=== PATIENT | male | born 1995 | race Hispanic/Latino ===

== ENCOUNTER 2020-05-08 21:41 | Emergency (ER) | payer OTHER ==
[~2020-05-08] VITALS: Ht 177.8 cm; Wt 136.1 kg
[2020-05-08] MEDS ORDERED: ACETAMINOPHEN 325 MG TAB ONE (23:09)
[2020-05-08] MEDS ORDERED: ACETAMINOPHEN 325 MG TAB PO ONE (23:15)
--- NOTE | 2020-05-09 01:25 | Emergency Department Note ---
History of Present Illnes History of Present Illness Chief Complaint: COVID PUI History of Present Illness This is a 24 year old male * 24 Y/O MALE PT AAOX3 PRESENTS TO THE ER C/O GENERALIZED WEAKNESS, ESCALANTE, FEVER/CHILLS, DRY COUGH AND HEARTBURN X1 WEEK; PT DENIES BEING AROUND RECENTL Y ANYONE SICK; TEMP 102.1 IN TRIAGE; NAD NOTED AT THIS TIME; RESP EVEN/UNLABORED; NAD NOTED AT THIS TIME;. Historian: Patient Arrival Mode: Car Onset (how long ago): day(s) (7) Location: ALL OVER Quality: HEADACHE, FEVER, CHILLS, COUGH, Radiation: Reports non-radiation Severity: mild Onset quality: gradual Duration (how long): day(s) (7) Timing of current episode: constant Progression: waxing and waning Chronicity: new Context: Reports recent illness (VIRAL URI SYMPTOMS) Relieving factors: none Exacerbating factors: none Associated symptoms: Reports denies other symptoms Past Medical/Family History Physician Review I have reviewed the patient's past medical and family history. Any updates have been documented here. Past Medical History Recent Fever: Yes Clinical Suspicion of Infectio: Yes New/Unexplained Change in Ment: No Past Medical History: None Other Surgery: LT MINISCUS Social History Smoking Cessation: Never Smoker Alcohol Use: None Any Illegal Drug Use: No Family History Family history of heart diseas: No Review of Systems Review of Systems Constitutional: Reports as per HPI EENTM: Reports no symptoms Cardiovascular: Reports no symptoms Respiratory: Reports as per HPI Gastrointestinal: Reports no symptoms Genitourinary: Reports no symptoms Musculoskeletal: Reports no symptoms Integumentary: Reports no symptoms Neurological: Reports no symptoms Psychological: Reports no symptoms Endocrine: Reports no symptoms Hematological/Lymphatic: Reports no symptoms Physical Exam Related Data Allergies: Coded Allergies: No Known Allergies (Unverified , 05/08/20) Triage Vital Signs Vital Signs Date Time Temp Pulse Resp B/P (MAP) Pulse Ox O2 Delivery O2 Flow Rate FiO2 05/08/20 22:55 102.1 88 18 140/87 98 Vital signs reviewed: Yes Physical Exam CONSTITUTIONAL Constitutional: Present well-developed, Present well-nourished HENT HENT: Present normocephalic, Present atraumatic, Present oropharynx eric ar/moist, Present nose normal HENT L/R: Present left ext ear normal, Present right ext ear normal EYES Eyes: Reports PERRL, Reports conjunctivae normal NECK Neck: Present ROM normal PULMONARY Pulmonary: Present effort normal, Present breath sounds normal CARDIOVASCULAR Cardiovascular: Present regular rhythm, Present heart sounds normal, Present capillary refill normal, Present normal rate GASTROINTESTINAL Abdominal: Present soft, Present nontender, Present bowel sounds normal GENITOURINARY Genitourinary: Present exam deferred SKIN Skin: Present warm, Present dry MUSCULOSKELETAL Musculoskeletal: Present ROM normal NEUROLOGICAL Neurological: Present alert, Present oriented x 3, Present no gross motor or sensory deficits PSYCHOLOGICAL Psychological: Present mood/affect normal, Present judgement normal Results Laboratory Laboratory Laboratory Tests Test 05/08/20 23:09 Assessment & Plan Medical Decision Making MDM PT WITH VIRAL URI SYMPTOMS COVID 19, CXR ORDERED TO EVAL FOR COVID 19 INFECTION, PNEUMONIA Assessment & Plan Final Impression: (1) COVID-19 (2) Fever Depart Disposition: HOME, SELF-CARE Last Vital Signs Date Time Temp Pulse Resp B/P (MAP) Pulse Ox O2 Delivery O2 Flow Rate FiO2 05/08/20 22:55 102.1 88 18 140/87 98 Medications in the ED Acetaminophen 975 mg STK-MED ONCE .ROUTE ; Start 05/08/20 at 23:09; Stop 05/08/20 at 23:03; Status DC Acetaminophen 975 mg ONCE ONCE PO Last administered on 05/08/20at 23:15; Admin Dose 975 MG; Start 05/08/20 at 23:15; Stop 05/08/20 at 23:16; Status DC RIN COATES MD May 09, 2020 01:25
--- NOTE | 2020-05-09 02:17 | Diagnostic Imaging Report ---
Examination: Single AP view of the chest. COMPARISON: None. INDICATION: Cough, fever, headache, diarrhea IMPRESSION: Exam limited by soft tissue attenuation from patient body habitus. 1. Lines and Tubes: None 2. Lungs are hypoinflated. Patchy bibasilar opacities, which likely reflect atelectasis given the low lung volumes. No consolidation or effusion. 3. Prominence of the cardiac silhouette and central vascular crowding due to low lung volumes. 4. No acute bony abnormalities. Signed by: Dr. Kd Mccullough M.D. on 05/09/2020 2:13 AM
== END 2020-05-09 03:49 | disposition home or self-care (01) ==
LOC: ER 21:41
DX: R50.9 Fever, unspecified (principal); U07.1 COVID-19
CPT/HCPCS: 71045; 87635; 99283